=== PATIENT | female | born 1960 | race African-American/Black ===

== ENCOUNTER 2019-07-06 18:12 | Emergency (ER) | payer OTHER ==
[2019-07-06 18:28] VITALS: BMI 24.3
[2019-07-06 18:38] VITALS: TEMP 100.4
--- NOTE | 2019-07-06 18:48 | PDOC ---
History of Present Illness - General Chief Complaint: Cold Symptoms Stated Complaint: SICK Time Seen by Provider: 07/06/19 18:37 - History of Present Illness Initial Comments: 07/06/19 18:47 HPI: 58 y/0 F with hx of thyroid CA s/p surgery and radiation, DM, HTN, HLD presenting from [facility] for 1 day of viral like illness with T 100.8 HR 120s BP 160s/80s. Patient reports she woke up this morning with cough with phlegm, sore throat, generalized body aches, chills, congestion. 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 The reason she presented to clinic today was for 1 month of generalized wekness and decreased energy with fatigue. Denies falls, head trauma, syncope, chest pain, SOB, JHAVERI, dysuria, change in BM, anxiety/ depression. PMHx: as noted above ROS: as noted SHx: Denies tobacco use; no alcohol use; no rec drugs Allergies: NKDA ROS: GENERAL/CONSTITUTIONAL: +fever. +generalized weakness. HEAD, EYES, EARS, NOSE AND THROAT: No change in vision. No ear pain or discharge. +sore throat. CARDIOVASCULAR: No chest pain or shortness of breath RESPIRATORY: +cough; no wheezing, or hemoptysis. GASTROINTESTINAL: No nausea, vomiting, diarrhea or constipation. GENITOURINARY: No dysuria, frequency, or change in urination. MUSCULOSKELETAL: No joint or muscle swelling or pain. No neck or back pain. SKIN: No rash NEUROLOGIC: +headache; no vertigo, loss of consciousness, or change in strength/ sensation. ENDOCRINE: No increased thirst. No abnormal weight change HEMATOLOGIC/LYMPHATIC: No anemia, easy bleeding, or history of blood clots. ALLERGIC/IMMUNOLOGIC: No hives or skin allergy. PE: GENERAL: Awake, alert, and fully oriented, no acute distress HEAD: No signs of trauma, normocephalic, atraumatic EYES: EOMI, sclera anicteric, conjunctiva clear ENT: Auricles normal inspection, hearing grossly normal, nares patent, oropharynx clear without exudates. Moist mucosa NECK: Normal ROM, no lymphadenopathy LUNGS: No increased work of breathing, symmetrical chest rise, clear to auscultation bilaterally, no wheezes, crackles or rhonchi HEART: tachycardia, regular rhythm, normal S1 and S2, no murmur, peripheral pulses 2+ and equal bilaterally. ABDOMEN: Soft, nondistended, nontender, normoactive bowel sounds. No guarding, no rebound. No masses. No CVAT MUSCULOSKELETAL: Normal inspection, FROM, BL calf tenderness NEUROLOGICAL: Cranial nerves II through XII grossly intact. Normal speech, normal gait, no focal sensorimotor deficits SKIN: Warm, Dry, normal turgor, no rashes or lesions noted Past History - Past Medical History Allergies/Adverse Reactions: Allergies Allergy/AdvReac Type Severity Reaction Status Date / Time No Known Drug Allergies Allergy Verified 11/27/14 12:16 Home Medications: Ambulatory Orders Ciclopirox/Urea/Camph/Men/Euc [Ciclopirox 8% Treatment Kit] 34.6 ml TP ONCE Ergocalciferol (Vitamin D2) [Drisdol] 50,000 unit PO WEEKLY 07/06/19 Levothyroxine [Synthroid -] 137 mcg PO DAILY 07/06/19 Ranitidine HCl 150 mg PO BID 07/06/19 Rosuvastatin Calcium 10 mg PO DAILY 07/06/19 Sitagliptin Phos/Metformin HCl [Janumet 50-1,000 mg Tablet] 1 each PO BID COPD: No Diabetes: Yes HTN: Yes Thyroid Disease: Yes - Psycho Social/Smoking Cessation Hx Smoking History: Never smoked Have you smoked in the past 12 months: No Information on smoking cessation initiated: No Hx Alcohol Use: No Drug/Substance Use Hx: No Substance Use Type: None *Physical Exam - Vital Signs Last Vital Signs Temp Pulse Resp BP Pulse Ox 100.4 F H 117 H 18 156/86 98 07/06/19 18:38 07/06/19 18:23 07/06/19 18:23 07/06/19 18:23 07/06/19 18:23 ED Treatment Course - LABORATORY CBC & Chemistry Diagram: 07/06/19 20:50 07/06/19 20:50 Medical Decision Making - Medical Decision Making 07/06/19 20:19 58 y/0 F with hx of thyroid CA s/p surgery and radiation, DM, HTN, HLD presenting from Dr [facility] for 1 day of viral like illness with T 100.8 HR 120s BP 160s/80s. Also with 1month of generalized weakness and fatigue. BP 156/86 HR 117 T 100.4; PE with BL calf ttp. -cbc, cmp, tsh, t4, BL duplex, cxr, mg, phos -ivf, ofirmev 07/06/19 22:35 mg 1.6 k 3.4 cxr without acute process ekg sinus tach, nl intervals, no ambrocio/d will replete mg and k and treat for presumptive flu patient body aches resolved but JHAVERI still present; will give toradol and reglan for relief discussed with Dr Rubio and patient will followup in his clinic following improvement of flu symptoms Discharge - Discharge Information Problems reviewed: Yes Clinical Impression/Diagnosis: Influenza Condition: Improved Disposition: HOME - Follow up/Referral - Patient Discharge Instructions Patient Printed Discharge Instructions: DI for Influenza -- Adult Additional Instructions: Additional Instructions: Please return to the emergency department with any new or worsening symptoms or concerns Please follow up with Dr Rubio for re-evaluation of weakness and fatigue in 1 week after flu symptoms resolve. Please take tamiflu twice a day for 5 days. You may take tylenol and ibuprofen pain control and stagger them. For example, 650mg tylenol at 9am, 600mg ibuprofen at noon, 650mg tylenol at 3pm, 600mg ibuprofen at 6pm, etc - Post Discharge Activity
[2019-07-06] MEDS ORDERED: SODIUM CHLORIDE 1,000 ML IV STA ×2 (19:14→22:06)
[2019-07-06] MEDS ORDERED: ACETAMINOPHEN 1000 MG/100 ML VIAL (NON FORMULARY) IVPB ONE (19:14)
--- NOTE | 2019-07-06 19:19 | PDOC ---
Documentation entered by Kale Lawrence SCRIBE, acting as scribe for Vy Tidwell DO. Vy Tidwell DO: This documentation has been prepared by the Howard garcia Daniel, SCRIBE, under my direction and personally reviewed by me in its entirety. I confirm that the documentation accurately reflects all work, treatment, procedures, and medical decision making performed by me. Attending Attestation - Resident Resident Name: Sharla Curiel - ED Attending Attestation I have performed the following: I have examined & evaluated the patient, The case was reviewed & discussed with the resident, I agree w/resident's findings & plan, Exceptions are as noted - HPI HPI: 07/06/19 19:30 The patient is a 58 year old female with a past medical history of thyroid cancer s/p radiation here today for evaluation of fever and tachycardia. The patient reports that she developed chills, fever, and body aches today. She was also noted to be tachycardic by her PCP. Patient notes some generalized weakness for 1 month and leg cramps since 06/22/2019. Patient denies headache, lightheadedness. Denies chest pain, shortness of breath. Denies nausea, vomiting, diarrhea, abdominal pain. Allergies: NKDA PCP: Rafael Goodson - Physicial Exam PE: 07/06/19 19:30 Constitutional: Awake, alert, oriented. No acute distress. Head: Normocephalic. Atraumatic Eyes: PERRL. EOMI. Conjunctivae are not pale. ENT: +nares congested. Mucous membranes are moist and intact. Posterior pharynx without exudates or erythema. Uvula midline. Neck: Supple. Full ROM. No lymphadenopathy. Cardiovascular: +tachycardia. Regular rhythm. S1, S2 regular. Distal pulses are 2+ and symmetric. Pulmonary/Chest: +bilateral basilar crackles. No evidence of respiratory distress. No wheezing, rales or rhonchi. Abdominal: Soft and non-distended. There is no tenderness. No rebound, guarding or rigidity. No organomegaly. No palpable masses. Good bowel sounds. Back: No CVA tenderness. Musculoskeletal: +bilateral calf tenderness. No edema. No cyanosis. No clubbing. Full range of motion in all extremities. Radial/pedal pulses are intact and 2+ bilaterally Skin: +hot to touch. Skin is dry. No petechiae. No purpura. Neurological: Alert and oriented to person, place, and time. Cranial nerves II -XII are grossly intact. Normal speech. Strength is grossly symmetric. No sensory deficits. Psychiatric: Good eye contact. Normal interaction, affect and behavior. 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 Goodson for follow up on a month of generalized fatigue -will send labs, cxr to [facility] for poss pna -will give tylenol, ivf hydration -will send tsh -will discuss with Dr Naidu 07/06/19 20:59 mag 1.6 other labs pending pt to ultrasound 07/06/19 22:05 no dvt labs reviewed no elevated wbc cxr clear will start tamiflu 07/06/19 22:10 pt tolerating po magnesium running body aches improved pt updated on labs and imaging 07/06/19 22:43 resident discussed the case with dr. goodson who agrees with the plan 07/06/19 22:49 dow resolved pt feels better will dc with tamiflu and follow up with dr. babcock stable for dc to home will give work note Heart Score/ECG Review - ECG Intrepretation Comment:: 07/06/19 19:19 sinus tach at 109, nl axis, nl interval, no acute st/t wave findings
[2019-07-06] MEDS ORDERED: ACETAMINOPHEN INJECTION 100 ML IVPB ONE (19:44)
[2019-07-06 20:44] LABS: ALBUMIN 3.8 g/dl (3.4-5.0); BILIRUBIN,TOTAL 0.2 mg/dL (0.2-1); BLOOD UREA NITROGEN 7.6 mg/dL (7-18); CALCIUM 9.1 mg/dL (8.5-10.1); CREATININE 0.7 mg/dL (0.55-1.3); MAGNESIUM 1.6 mg/dL (1.8-2.4); POTASSIUM 3.7 mmol/L (3.5-5.1); TOT PROT 7.5 g/dl (6.4-8.2)
[2019-07-06] MEDS ORDERED: MAGNESIUM SULF 50% (8.12 MEQ/2 ML-1 GM VIAL) IVPB ONE (20:46)
[2019-07-06 21:32] LABS: BASO % 0.7 % (0-2.0); EOS % 0.5 % (0-4.5); HEMOGLOBIN 11.3 GM/dL (10.7-15.3); LYMPH % 15.4 % (8-40); MCHC 33.3 g/dl (32.0-36.0); MEAN CELL VOLUME 84.2 fl (80-96); MEAN PLT VOLUME 8.8 fl (7.5-11.1); MONO % 7.4 % (3.8-10.2); PLATELET COUNT 276 K/MM3 (134-434); RBC 4.04 M/mm3 (3.60-5.2); RDW 14.6 % (11.6-15.6); WHITE BLOOD COUNT 6.9 K/mm3 (4.0-10.0)
[2019-07-06] MEDS ORDERED: MAGNESIUM SULF 50% (8.12 MEQ/2 ML-1 GM VIAL) ONE (21:40)
[2019-07-06] MEDS ORDERED: KETOROLAC TROMETHAMINE 30 MG/1 ML VIAL IVPUSH ONE (22:05)
[2019-07-06] MEDS ORDERED: OSELTAMIVIR PHOSPHATE 75 MG CAPSULE PO ONE (22:05)
[2019-07-06] MEDS ORDERED: METOCLOPRAMIDE HCL INJECTION 10 MG/2 ML VIAL IVPUSH ONE (22:05)
[2019-07-06 22:12] LABS: CALCIUM 8.6 mg/dL (8.5-10.1); CREATININE 0.6 mg/dL (0.55-1.3); MAGNESIUM 1.4 mg/dL (1.8-2.4); PHOSPHOROUS 3.3 mg/dL (2.5-4.9); POTASSIUM 3.4 mmol/L (3.5-5.1)
[2019-07-06] MEDS ORDERED: POTASSIUM CHLORIDE TABS 20 MEQ TABLET.ER (FP) PO ONE ×2 (22:15→22:22)
[2019-07-06] MEDS ORDERED: OSELTAMIVIR PHOSPHATE 75 MG CAPSULE ONE (22:22)
[2019-07-06] MEDS ORDERED: METOCLOPRAMIDE HCL INJECTION 10 MG/2 ML VIAL ONE (22:22)
[2019-07-06] MEDS ORDERED: KETOROLAC TROMETHAMINE 30 MG/1 ML VIAL ONE (22:23)
[2019-07-06 23:55] VITALS: BP 126/62; PULSE 102
--- NOTE | 2019-07-07 14:03 | EKG ---
Test Reason : Blood Pressure : / mmHG Vent. Rate : 109 BPM Atrial Rate : 109 BPM P-R Int : 174 ms QRS Dur : 078 ms QT Int : 330 ms P-R-T Axes : 065 040 030 degrees QTc Int : 444 ms SINUS TACHYCARDIA BIATRIAL ENLARGEMENT ABNORMAL ECG WHEN COMPARED WITH ECG OF 24-APR-2015 12:02, NO SIGNIFICANT CHANGE WAS FOUND Confirmed by BEN STANTON MD ([id number]) on 07/07/2019 2:03:19 PM Referred By: Confirmed By:BEN STANTON MD
== END 2019-07-06 23:55 | disposition home or self-care (01) ==
LOC: JER 18:12
PROC: 3E0337Z Introduction of Electrolytic and Water Balance Substance into Peripheral Vein, Percutaneous Approach (ICD-10-PCS; principal; 2019-07-06)
PROC: 3E033GC Introduction of Other Therapeutic Substance into Peripheral Vein, Percutaneous Approach (ICD-10-PCS; 2019-07-06)
PROC: 3E033GC Introduction of Other Therapeutic Substance into Peripheral Vein, Percutaneous Approach (ICD-10-PCS; 2019-07-06)
PROC: 3E033NZ Introduction of Analgesics, Hypnotics, Sedatives into Peripheral Vein, Percutaneous Approach (ICD-10-PCS; 2019-07-06)
PROC: 3E0333Z Introduction of Anti-inflammatory into Peripheral Vein, Percutaneous Approach (ICD-10-PCS; 2019-07-06)
DX: J11.1 Influenza due to unidentified influenza virus with other respiratory manifestations (principal); I10 Essential (primary) hypertension; E78.5 Hyperlipidemia, unspecified; E11.9 Type 2 diabetes mellitus without complications; Z79.84 Long term (current) use of oral hypoglycemic drugs; Z85.850 Personal history of malignant neoplasm of thyroid; E89.0 Postprocedural hypothyroidism; Z92.3 Personal history of irradiation
CPT/HCPCS: 36415; 71045-TC-FY; 80048; 80053; 83735; 84100; 84436; 84439; 84443; 85025; 93005; 93010; 93970-TC; 99283-25; J0131; J7030